=== PATIENT | female | born 1965 | race Caucasian/White ===

== ENCOUNTER 2016-08-05 18:00 | Observation (INO) | payer OTHER ==
[2016-08-05 18:10] VITALS: BMI 29.3
[2016-08-05 18:23] LABS: BASOPHIL 1.1 % (0-2.0); EOSINOPHIL 2.8 % (0-4.5); MCH 30.7 pg (25.7-33.7); MCHC 34.6 g/dl (32.0-36.0); MEAN CELL VOLUME 88.7 fl (80-96); MEAN PLT VOLUME 8.3 fl (7.5-11.1); NEUTROPHILS 61.4 % (42.8-82.8); PLATELET COUNT 246 K/MM3 (134-434); RDW 12.5 % (11.6-15.6); WHITE BLOOD COUNT 7.4 K/mm3 (4.0-10.0)
[2016-08-05] MEDS ORDERED: ASPIRIN 81 MG CHEWABLE TABLETS PO ONE (18:32)
--- NOTE | 2016-08-05 18:32 | PDOC ---
[id number] No Limitations - History of Present Illness Initial Comments: 08/05/16 18:36 The patient is a 50 year old female, with a significant past medical history of thyroid cancer status post resection (2009), status post cholecystectomy, and status post tubal ligation, who presents to the emergency department with chest pain for the past 3 days. She describes her chest pain as sharp heaviness, ranging from mild to moderate, with radiation to her jaw and bilateral arms but worse on her left arm. She denies any modifying factors. She notes that she has been taking aspirin for the past 3 days without any relief symptoms. She notes that she has been having pain in her legs bilaterally. The patient denies shortness of breath, headache and dizziness. Denies fever, chills, nausea, vomit, diarrhea and constipation. Allergies: Penicillin Past surgical history: Thyroid resection, cholecystectomy, tubal ligation Social history: Alcohol use. 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 <Tavo Cameron - Last Filed: 08/05/16 18:36> <Olivia Ring - Last Filed: 08/06/16 11:58> - General Chief Complaint: Chest Pain Stated Complaint: CHEST PAIN Time Seen by Provider: 08/05/16 18:31 Past History <Tavo Cameron - Last Filed: 08/05/16 18:36> - Past Medical History Cancer: Yes (thyroid) Thyroid Disease: Yes - Surgical History Cholecystectomy: Yes - Psycho/Social/Smoking Cessation Hx Anxiety: No Suicidal Ideation: No Smoking Status: No Smoking History: Never smoked Number of Cigarettes Smoked Daily: 0 Information on smoking cessation initiated: No Hx Alcohol Use: No Drug/Substance Use Hx: Yes Substance Use Type: Alcohol <Olivia Ring - Last Filed: 08/06/16 11:58> - Past Medical History Allergies/Adverse Reactions: Allergies Allergy/AdvReac Type Severity Reaction Status Date / Time Penicillins Allergy Intermediate Swelling Verified 08/05/16 18:04 Home Medications: Ambulatory Orders Levothyroxine [Synthroid -] 125 mcg PO DAILY #0 tablet 03/04/12 Review of Systems - Review of Systems Able to Perform ROS?: Yes Comments:: 08/05/16 18:37 GENERAL/CONSTITUTIONAL: No fever or chills. No weakness. HEAD, EYES, EARS, NOSE AND THROAT: No change in vision. No ear pain or discharge. No sore throat. CARDIOVASCULAR: +Chest pain. No shortness of breath RESPIRATORY: No cough, wheezing, or hemoptysis. GASTROINTESTINAL: No nausea, vomiting, diarrhea or constipation. GENITOURINARY: No dysuria, frequency, or change in urination. MUSCULOSKELETAL: No joint or muscle swelling or pain. No neck or back pain. EXTREMITIES: +Bilateral lower extremity pain. SKIN: No rash NEUROLOGIC: No headache, vertigo, loss of consciousness, or change in strength/ sensation. ENDOCRINE: No increased thirst. No abnormal weight change HEMATOLOGIC/LYMPHATIC: No anemia, easy bleeding, or history of blood clots. ALLERGIC/IMMUNOLOGIC: No hives or skin allergy. <Tavo Cameron - Last Filed: 08/05/16 18:36> *Physical Exam - Vital Signs Last Vital Signs Temp Pulse Resp BP Pulse Ox 98.9 F 88 18 131/82 97 08/05/16 18:06 08/05/16 18:06 08/05/16 18:06 08/05/16 18:06 08/05/16 18:06 - Physical Exam Comments: 08/05/16 18:37 GENERAL: Awake, alert, and fully oriented, in no acute distress HEAD: No signs of trauma, normocephalic, atraumatic EYES: PERRLA, EOMI, sclera anicteric, conjunctiva clear ENT: Auricles normal inspection, hearing grossly normal, nares patent, oropharynx clear without exudates. Moist mucosa NECK: Normal ROM, supple, no lymphadenopathy, JVD, or masses LUNGS: No distress, speaks full sentences, clear to auscultation bilaterally HEART: Regular rate and rhythm, normal S1 and S2, no murmurs, rubs or gallops, peripheral pulses normal and equal bilaterally. ABDOMEN: Soft, nontender, normoactive bowel sounds. No guarding, no rebound. No masses EXTREMITIES: +Calf tenderness bilaterally, right worse than left. Normal range of motion, no edema. No clubbing or cyanosis. NEUROLOGICAL: Cranial nerves II through XII grossly intact. Normal speech, normal gait, no focal sensorimotor deficits SKIN: Warm, Dry, normal turgor, no rashes or lesions noted. <Tavo Cameron - Last Filed: 08/05/16 18:36> - Vital Signs Last Vital Signs Temp Pulse Resp BP Pulse Ox 98.9 F 88 18 131/82 97 08/05/16 18:06 08/05/16 18:06 08/05/16 18:06 08/05/16 18:06 08/05/16 18:06 <Olivia Ring - Last Filed: 08/06/16 11:58> Heart Score/ECG Review - History History: Highly suspicious - Electrocardiogram EKG: Normal - Age Age: 45-65 - Risk Factors Risk Factors Heart Score: No Hx Hypercholesterolemia, No Hx Hypertension, No Hx Diabetes, No Smoking History Based on the list above the patient has:: No risk factors known - Troponin Troponin: </= normal limit - Score Heart Score - Total: 3 - ECG Impressions Comment:: EKG read 18:19- NSR 80 bpm, no acute ST/T changes <Olivia Ring - Last Filed: 08/06/16 11:58> ED Treatment Course - LABORATORY CBC & Chemistry Diagram: 08/05/16 18:15 08/05/16 18:15 - ADDITIONAL ORDERS Additional order review: Laboratory Results 08/05/16 18:15 Serum , Qual Negative 08/05/16 18:15 RBC 4.32 MCV 88.7 MCHC 34.6 RDW 12.5 MPV 8.3 Neutrophils % 61.4 D Lymphocytes % 26.4 D Monocytes % 8.3 Eosinophils % 2.8 Basophils % 1.1 <Tavo Cameron - Last Filed: 08/05/16 18:36> - LABORATORY CBC & Chemistry Diagram: 08/06/16 07:22 08/06/16 07:22 - ADDITIONAL ORDERS Additional order review: 08/05/16 18:15 RBC 4.32 MCV 88.7 MCHC 34.6 RDW 12.5 MPV 8.3 Neutrophils % 61.4 D Lymphocytes % 26.4 D Monocytes % 8.3 Eosinophils % 2.8 Basophils % 1.1 <Olivia Ring - Last Filed: 08/06/16 11:58> Medical Decision Making - Medical Decision Making 08/05/16 19:[address] Wagner. P/w chest pressure radiating to her arms associated with nausea for the past 3 days. currently denies nausea, but still having pressure in chest and arms. She has been taking aspirin for past few days, but not today. No SOB. Noted to have calf tenderness B/L on exam. She has been in remission from thyroid CA for past 2 years (used to see Dr. Silva for the cardiac effects, has not seen him recently). Will obtain DVT study, CTA, labs. If everything is negative, likely obs for chest pain. <Olivia Ring - Last Filed: 08/06/16 11:58> *DC/Admit/Observation/Transfer - Attestations Scribe Attestion: 08/05/16 18:37 Documentation prepared by Tavo Cameron, acting as medical records specialist for Olivia Ring MD <Tavo Cameron - Last Filed: 08/05/16 18:36> <Olivia Ring - Last Filed: 08/06/16 11:58> Diagnosis at time of Disposition: Chest pain - Discharge Dispostion Condition at time of disposition: Stable
[2016-08-05] MEDS ORDERED: ASPIRIN 81 MG CHEWABLE TABLETS ONE (18:37)
[2016-08-05 18:38] LABS: CPK(DFH) 127 IU/L (26-140)
[2016-08-05 18:39] LABS: ALBUMIN 4.1 g/dl (3.5-5.0); ALK PHOS 76 U/L (32-92); ANION GAP 6 (8-16); BILIRUBIN,TOTAL 0.3 mg/dl (0.2-1.0); CO2 27 mmol/L (22-28); CREATININE 0.8 mg/dl (0.6-1.3); GLUCOSE,RANDOM 95 mg/dl (74-106); SGOT/AST 19 U/L (10-42); SGPT/ALT 16 U/L (10-40); TOT PROT 7.4 g/dl (6.4-8.3)
[2016-08-05] MEDS ORDERED: CALCIUM GLUCONATE 10% - 1,000 MG/10 ML VIAL IVPB ONE (18:44)
[2016-08-05] MEDS ORDERED: CALCIUM GLUCONATE 10% - 1,000 MG/10 ML VIAL ONE (19:02)
[2016-08-05 19:20] LABS: TROPONIN I (DFP) < 0.03 ng/ml (0.03-0.50)
--- NOTE | 2016-08-05 20:11 | PDOC ---
*Physical Exam - Vital Signs Last Vital Signs Temp Pulse Resp BP Pulse Ox 98.9 F 88 18 131/82 97 08/05/16 18:06 08/05/16 18:06 08/05/16 18:06 08/05/16 18:06 08/05/16 18:06 ED Treatment Course - LABORATORY CBC & Chemistry Diagram: 08/05/16 18:15 08/05/16 18:15 - ADDITIONAL ORDERS Additional order review: Laboratory Results 08/05/16 08/05/16 08/05/16 18:15 18:15 18:15 Sodium 135 L Potassium 3.7 Chloride 102 Carbon Dioxide 27 Anion Gap 6 L BUN 16 D Creatinine 0.8 D Creat Clearance w eGFR > 60 Random Glucose 95 Calcium 8.0 L Total Bilirubin 0.3 D AST 19 ALT 16 Alkaline Phosphatase 76 Creatine Kinase 127 Troponin I < 0.03 L Total Protein 7.4 Albumin 4.1 Serum , Qual Negative 08/05/16 18:15 RBC 4.32 MCV 88.7 MCHC 34.6 RDW 12.5 MPV 8.3 Neutrophils % 61.4 D Lymphocytes % 26.4 D Monocytes % 8.3 Eosinophils % 2.8 Basophils % 1.1 - Medications Given in the ED: ED Medications Discontinued Medications Generic Name Dose Route Start Last Admin Trade Name Freq PRN Reason Stop Dose Admin Aspirin 324 mg 08/05/16 18:32 08/05/16 18:44 Asa - PO 08/05/16 18:33 324 mg ONCE ONE Administration Calcium Gluconate 1,000 mg 08/05/16 18:44 08/05/16 19:38 Calcium Gluconate 10% - IVPB 08/05/16 18:45 1,000 mg ONCE ONE Administration *DC/Admit/Observation/Transfer Diagnosis at time of Disposition: Chest pain Qualifiers: Chest pain type: unspecified Qualified Code(s): R07.9 - Chest pain, unspecified - Discharge Dispostion Condition at time of disposition: Stable Admit: Yes
--- NOTE | 2016-08-05 23:15 | HP ---
CHIEF COMPLAINT: Chest Pressure PCP: Employment Recruiter: Dr. Richard Silva HISTORY OF PRESENT ILLNESS: This is a 50 y/o female with a past medical history of Thyroid Ca s/p Thyroidectomy. Who presents to the emergency department with midsternal chest pressure radiating to her jaw, with bilateral arm heaviness L>R x several days. Patient reports taking a Baby Asa daily with little relief. Patient reports constant pressure increased at rest, with palpations. Patient reports a similar episode when diagnosed with Thyroid Ca 7 years ago. Patient reports having a Thallium Stress, Halter, Doppler- negative 2-4 yrs ago. Patient denies fever, chills, cough, dizziness, blurred vision, headache, N/V/D, constipation, dysuria. 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 Family History: Mother: HTN, Hyperthyroid Grandmother: MVP, Cervical Ca Allergies Penicillins Allergy (Intermediate, Verified 08/05/16 18:04) Swelling HOME MEDICATIONS: Home Medications Medication Instructions Recorded Levothyroxine [Synthroid -] 125 mcg PO DAILY #0 tablet 03/04/12 REVIEW OF SYSTEMS CONSTITUTIONAL: fatigued Absent: fever, chills, diaphoresis, generalized weakness, malaise, loss of appetite, weight change HEENT: jaw pain Absent: rhinorrhea, nasal congestion, throat pain, throat swelling, difficulty swallowing, mouth swelling, ear pain, eye pain, visual changes CARDIOVASCULAR: chest pain, palpitations Absent: syncope, irregular heart rate, lightheadedness, peripheral edema RESPIRATORY: Absent: cough, shortness of breath, dyspnea with exertion, orthopnea, wheezing, stridor, hemoptysis GASTROINTESTINAL: abdominal pain Absent: abdominal distension, nausea, vomiting, diarrhea, constipation, melena, hematochezia GENITOURINARY: Absent: dysuria, frequency, urgency, hesitancy, hematuria, flank pain, genital pain MUSCULOSKELETAL: arm heaviness Absent: myalgia, arthralgia, joint swelling, back pain, neck pain SKIN: Absent: rash, itching, pallor HEMATOLOGIC/IMMUNOLOGIC: Absent: easy bleeding, easy bruising, lymphadenopathy, frequent infections ENDOCRINE: Absent: unexplained weight gain, unexplained weight loss, heat intolerance, cold intolerance NEUROLOGIC: Absent: headache, focal weakness or paresthesias, dizziness, unsteady gait, seizure, mental status changes, bladder or bowel incontinence PSYCHIATRIC: Absent: anxiety, depression, suicidal or homicidal ideation, hallucinations. PHYSICAL EXAMINATION GENERAL: Awake, alert, and fully oriented, in no acute distress. HEAD: Normal with no signs of trauma. EYES: Pupils equal, round and reactive to light, extraocular movements intact, sclera anicteric, conjunctiva clear. No lid lag. EARS, NOSE, THROAT: Ears normal, nares patent, oropharynx clear without exudates. Moist mucous membranes. NECK: Normal range of motion, supple without lymphadenopathy, JVD, or masses. LUNGS: Breath sounds equal, clear to auscultation bilaterally. No wheezes, and no crackles. No accessory muscle use. HEART: Regular rate and rhythm, normal S1 and S2 without murmur, rub or gallop. CP non-reproducible on palpation. ABDOMEN: Soft, nontender, not distended, normoactive bowel sounds, no guarding, no rebound, no masses. No hepatomegaly or splenomegaly. MUSCULOSKELETAL: Normal range of motion at all joints. No bony deformities or tenderness. No CVA tenderness. UPPER EXTREMITIES: 2+ pulses, warm, well-perfused. No cyanosis. No clubbing. No peripheral edema. LOWER EXTREMITIES: 2+ pulses, warm, well-perfused. No calf tenderness. No peripheral edema. NEUROLOGICAL: Cranial nerves II-XII intact. Normal speech. Normal gait. PSYCHIATRIC: Cooperative. Good eye contact. Appropriate mood and affect. SKIN: Warm, dry, normal turgor, no rashes or lesions noted, normal capillary refill. Laboratory Results - last 24 hr 08/05/16 08/05/16 08/05/16 18:15 18:15 18:15 WBC 7.4 D RBC 4.32 Hgb 13.3 Hct 38.3 MCV 88.7 MCHC 34.6 RDW 12.5 Plt Count 246 MPV 8.3 Neutrophils % 61.4 D Lymphocytes % 26.4 D Monocytes % 8.3 Eosinophils % 2.8 Basophils % 1.1 Sodium 135 L Potassium 3.7 Chloride 102 Carbon Dioxide 27 Anion Gap 6 L BUN 16 D Creatinine 0.8 D Creat Clearance w eGFR > 60 Random Glucose 95 Calcium 8.0 L Total Bilirubin 0.3 D AST 19 ALT 16 Alkaline Phosphatase 76 Creatine Kinase Troponin I Total Protein 7.4 Albumin 4.1 Serum , Qual Negative 08/05/16 08/06/16 08/06/16 18:15 00:00 00:00 WBC RBC Hgb Hct MCV MCHC RDW Plt Count MPV Neutrophils % Lymphocytes % Monocytes % Eosinophils % Basophils % Sodium Potassium Chloride Carbon Dioxide Anion Gap BUN Creatinine Creat Clearance w eGFR Random Glucose Calcium Total Bilirubin AST ALT Alkaline Phosphatase Creatine Kinase 127 Cancelled 114 Troponin I < 0.03 L Cancelled < 0.02 Total Protein Albumin Serum , Qual ASSESSMENT/PLAN: This is a 50 y/o female with a PMHx of: Thyroid Ca( s/p Thyroidectomy 2009), MVP. Who presents to the ED with chest pressure x several days. Placed on Tele Observation for Chest Pain r/o ACS further evaluation of their emergent condition. Problems: 1. Chest Pain r/o ACS vs MT 2. Hypocalcemia 3. Hypothyroidism Plan: FEN - PO fluids - Repleted Ca - Low Na Diet Code Status: Full Code Dispo: Observation for continued medical care Problem List - Problem (1) Chest pain Assessment/Plan: - r/o ACS - [place] tele monitoring - HEART Score 3 - Cardiac Enzymes neg x1 - ARUNA Score 1 - Serial Enzymes x2 - EKG: NSR with left axis deviation, incomplete RBB - Continue Asa - Will start BB low dose, with BP parameters - Consider Echo - f/u with Cardiology in outpatient Code(s): R07.9 - CHEST PAIN, UNSPECIFIED Qualifiers: Chest pain type: unspecified Qualified Code(s): R07.9 - Chest pain, unspecified (2) Hypothyroidism Assessment/Plan: - Continue Levothyroxine - TSH - Free T3 Code(s): E03.9 - HYPOTHYROIDISM, UNSPECIFIED (3) DVT prophylaxis Assessment/Plan: - OOB - SCDs - Consider AC if LOS > 48 hrs Code(s): [id number] - Visit type - Emergency Visit Emergency Visit: Yes ED Registration Date: 08/05/16 Care time: The patient presented to the Emergency Department on the above date and was hospitalized for further evaluation of their emergent condition. - New Patient This patient is new to me today: Yes Date on this admission: 08/05/16 - Critical Care Critical Care patient: No
[2016-08-06 01:26] LABS: TROPONIN I < 0.02 ng/ml (0.00-0.05)
[2016-08-06] MEDS ORDERED: LEVOTHYROXINE NA 125 MCG TABLET (FP) PO SCH (07:00)
[2016-08-06 09:06] LABS: BASOPHIL 0.7 % (0-2.0); EOSINOPHIL 3.8 % (0-4.5); MCH 30.8 pg (25.7-33.7); MCHC 34.4 g/dl (32.0-36.0); MEAN CELL VOLUME 89.5 fl (80-96); MEAN PLT VOLUME 8.8 fl (7.5-11.1); NEUTROPHILS 62.1 % (42.8-82.8); PLATELET COUNT 284 K/MM3 (134-434); RDW 12.6 % (11.6-15.6); WHITE BLOOD COUNT 6.2 K/mm3 (4.0-10.0)
[2016-08-06 09:15] LABS: CALCIUM 8.8 mg/dl (8.4-10.2); CREATININE 0.6 mg/dl (0.6-1.3)
[2016-08-06 09:28] LABS: TROPONIN I (DFP) 0.03 ng/ml (0.03-0.50)
[2016-08-06] MEDS: METOPROLOL TARTRATE 25 MG TABLET (FP) PO SCH (09:44)
[2016-08-06] MEDS: ASPIRIN 81 MG CHEWABLE TABLETS PO SCH (09:44)
--- NOTE | 2016-08-06 11:09 | PN ---
Physical Exam: SUBJECTIVE: Patient seen and examined. Still feels chest pressure although improved. Denies SOB, palpitations, orthopnea, lower extremity edema. Environmental Intern: Dr. Aguilar - last seen in July 2016; follows regularly PCP: Dr. Preet Gomez Cardiololgy: Dr. Love - last seen 3 years ago OBJECTIVE: Vital Signs Period Temp Pulse Resp BP Sys/Hurtado Pulse Ox Last 24 Hr 98.7 F-98.7 F 70-75 17-17 122-123/68-77 GENERAL: The patient is awake, alert, and fully oriented, in no acute distress. HEAD: Normal with no signs of trauma. EYES: PERRL, extraocular movements intact, sclera anicteric, conjunctiva clear. No ptosis. LUNGS: Breath sounds equal, clear to auscultation bilaterally, no wheezes, no crackles, no accessory muscle use. HEART: Regular rate and rhythm, S1, S2 without murmur, rub or gallop. ABDOMEN: Soft, nontender, nondistended, normoactive bowel sounds, no guarding, no rebound, no hepatosplenomegaly, no masses. EXTREMITIES: 2+ pulses, warm, well-perfused, no edema. NEUROLOGICAL: Cranial nerves II through XII grossly intact. Normal speech, gait not observed. PSYCH: Normal mood, normal affect. SKIN: Warm, dry, normal turgor, no rashes or lesions noted Laboratory Results - last 24 hr 08/06/16 08/06/16 08/06/16 00:00 00:00 07:22 WBC RBC Hgb Hct MCV MCHC RDW Plt Count MPV Neutrophils % Lymphocytes % Monocytes % Eosinophils % Basophils % Sodium 138 Potassium 3.6 Chloride 101 Carbon Dioxide 29 H Anion Gap 8 BUN 14 Creatinine 0.6 D Random Glucose 100 Calcium 8.8 Creatine Kinase Cancelled 114 Troponin I Cancelled < 0.02 08/06/16 08/06/16 07:22 07:22 WBC 6.2 RBC 4.42 Hgb 13.6 Hct 39.6 MCV 89.5 MCHC 34.4 RDW 12.6 Plt Count 284 MPV 8.8 Neutrophils % 62.1 Lymphocytes % 26.2 Monocytes % 7.2 Eosinophils % 3.8 Basophils % 0.7 Sodium 48 Potassium Chloride Carbon Dioxide Anion Gap BUN Creatinine Random Glucose Calcium Creatine Kinase 105 Troponin I 0.03 Active Medications Generic Name Dose Route Start Last Admin Trade Name Eloisa PRN Reason Stop Dose Admin Aspirin 81 mg 08/06/16 10:00 08/06/16 09:44 Asa - PO 81 mg DAILY AKASH Administration Levothyroxine Sodium 125 mcg 08/06/16 07:00 08/06/16 06:35 Synthroid - PO 125 mcg DAILY@0700 AKASH Administration Metoprolol Tartrate 25 mg 08/06/16 10:00 08/06/16 09:44 Lopressor - PO 25 mg DAILY AKASH Administration 08/05/16 CTA: negative for PE or acute pathology ASSESSMENT/PLAN: 50 year-old woman with a PMH of thyroid cancer s/p resection (2009), placed on observation for chest pain. Chest pain --troponins neg x 3 --CT chest unremarkable --echo on Monday; stress ordered for Monday in event cardiology wants, NPO after midnight Monday --continue metoprolol, ASA --cardiology consult requested Thyroid cancer s/p resection --TSH, free T3 pending --continue levothyroxine F/E/N Fluids: PO intake adequate Electrolytes: replete as indicated Nutrition: low sodium diet DVT prophylaxis: low risk, fully ambulatory, oob Dispo: continues to require observation. Full Code Visit type - Emergency Visit Emergency Visit: Yes ED Registration Date: 08/05/16 Care time: The patient presented to the Emergency Department on the above date and was hospitalized for further evaluation of their emergent condition. - New Patient This patient is new to me today: No - Critical Care Critical Care patient: No
[2016-08-06 14:56] LABS: THYROID STIMULATING HORMONE 3.49 uIU/ml (0.358-3.74)
[2016-08-07] MEDS ORDERED: LEVOTHYROXINE NA 125 MCG TABLET (FP) PO SCH (07:00)
[2016-08-07] MEDS: METOPROLOL TARTRATE 25 MG TABLET (FP) PO SCH (09:52)
[2016-08-07] MEDS: ASPIRIN 81 MG CHEWABLE TABLETS PO SCH (09:52)
--- NOTE | 2016-08-07 10:02 | PN ---
Physical Exam: SUBJECTIVE: Patient seen and examined OBJECTIVE: Vital Signs Period Temp Pulse Resp BP Sys/Hurtado Pulse Ox Last 24 Hr 98.1 F-98.5 F 69-72 18-18 102-117/65-67 97-98 GENERAL: The patient is awake, alert, and fully oriented, in no acute distress. HEAD: Normal with no signs of trauma. EYES: PERRL, extraocular movements intact, sclera anicteric, conjunctiva clear. No ptosis. LUNGS: Breath sounds equal, clear to auscultation bilaterally, no wheezes, no crackles, no accessory muscle use. HEART: Regular rate and rhythm, S1, S2 without murmur, rub or gallop. ABDOMEN: Soft, nontender, nondistended, normoactive bowel sounds, no guarding, no rebound, no hepatosplenomegaly, no masses. EXTREMITIES: 2+ pulses, warm, well-perfused, no edema. NEUROLOGICAL: Cranial nerves II through XII grossly intact. Normal speech, gait not observed. PSYCH: Normal mood, normal affect. SKIN: Warm, dry, normal turgor, no rashes or lesions noted Laboratory Results - last 24 hr 08/06/16 08/06/16 07:22 07:22 TSH 3.49 Free T3 2.3 Active Medications Generic Name Dose Route Start Last Admin Trade Name Eloisa PRN Reason Stop Dose Admin Aspirin 81 mg 08/06/16 10:00 08/07/16 09:52 Asa - PO 81 mg DAILY AKASH Administration Levothyroxine Sodium 125 mcg 08/07/16 07:00 08/07/16 06:30 Synthroid - PO 125 mcg DAILY@0700 AKASH Administration Metoprolol Tartrate 25 mg 08/06/16 10:00 08/07/16 09:52 Lopressor - PO 25 mg DAILY AKASH Administration ASSESSMENT/PLAN: 08/05/16 CTA: negative for PE or acute pathology ASSESSMENT/PLAN: 50 year-old woman with a PMH of thyroid cancer s/p resection (2009), placed on observation for chest pain. Chest pain --troponins neg x 3 --CT chest unremarkable --echo and possible stress on Monday --continue metoprolol, ASA --cardiology consult requested Thyroid cancer s/p resection --TSH, free T3 pending --continue levothyroxine F/E/N Fluids: PO intake adequate Electrolytes: replete as indicated Nutrition: low sodium diet DVT prophylaxis: low risk, fully ambulatory, oob Dispo: continues to require observation. Full Code Visit type - Emergency Visit Emergency Visit: Yes ED Registration Date: 08/05/16 Care time: The patient presented to the Emergency Department on the above date and was hospitalized for further evaluation of their emergent condition. - New Patient This patient is new to me today: No - Critical Care Critical Care patient: No
[2016-08-07 15:06] VITALS: BP 109/69; PULSE 68; TEMP 98
--- NOTE | 2016-08-07 15:20 | CON.CARD ---
Consult Consult Specialty:: Cardiology Referred by:: Hospitalist Medicine Reason for Consultation:: Chest pain - History of Present Illness Chief Complaint: Chest pain History of Present Illness: This is a 50 y/o female with a past medical history of Thyroid Ca s/p Thyroidectomy and consequent hypothyroidism, mitral valve prolapse syndrome presented to the emergency department with non-exertional midsternal chest pressure radiating to her jaw, with bilateral arm heaviness L>R for several days. Patient reports taking a Baby Asa daily with little relief. Patient reports constant pressure increased at rest, with palpations, sxs worse supine than upright. Patient reports a similar episode when diagnosed with Thyroid Ca 7 years ago. Patient reports having a Thallium Stress, Holter, Doppler- negative 2-4 yrs ago. Patient denies dyspnea, palpitations, near or true syncope , orthopnea, PND or LE edema. Chest pain improved with Toprol XL. ER course was notable for: (1) CT Chest - negative PE (2) Cardiac Enzyme neg x1 (3) Doppler severino legs- neg DVT - History Source History Provided By: Patient Limitations to Obtaining History: No Limitations - Past Medical History ...LMP: 02/29/12 - Alcohol/Substance Use Hx Alcohol Use: No - Smoking History Smoking history: Never smoked Aproximately how many cigarettes per day: 0 Home Medications - Allergies Allergies/Adverse Reactions: Allergies Allergy/AdvReac Type Severity Reaction Status Date / Time Penicillins Allergy Intermediate Swelling Verified 08/05/16 18:04 - Home Medications Home Medications: Ambulatory Orders Levothyroxine [Synthroid -] 125 mcg PO DAILY #0 tablet 03/04/12 Review of Systems - Review of Systems Cardiovascular: reports: Chest Pain Vital Signs: Vital Signs Temperature 98.0 F 08/07/16 15:05 Pulse Rate 68 08/07/16 15:05 Respiratory Rate 18 08/07/16 15:05 Blood Pressure 109/69 08/07/16 15:05 O2 Sat by Pulse Oximetry (%) 98 08/07/16 15:05 Constitutional: Yes: No Distress, Calm Neck: Yes: Supple Respiratory: Yes: Regular, CTA Bilaterally Gastrointestinal: Yes: Normal Bowel Sounds Cardiovascular: Yes: Regular Rate and Rhythm JVD: No Carotid Bruit: No Heart Sounds: Yes: S1, S2 Edema: No - Other Data Labs, Other Data: CBC, BMP 08/06/16 07:22 08/06/16 07:22 NSR @ 74 LAD Tele: NSR without events Ejection Fraction %: LVEF > or = 40 % Problem List - Problems (1) Chest pain Code(s): R07.9 - CHEST PAIN, UNSPECIFIED Qualifiers: Chest pain type: other chest pain Qualified Code(s): R07.89 - Other chest pain; R07.8 - Other chest pain (2) Hypothyroidism Code(s): E03.9 - HYPOTHYROIDISM, UNSPECIFIED Qualifiers: Hypothyroidism type: acquired Qualified Code(s): E03.9 - Hypothyroidism, unspecified (3) Mitral valve prolapse syndrome Code(s): I34.1 - NONRHEUMATIC MITRAL (VALVE) PROLAPSE Assessment/Plan 08/05/16 CTA: negative for PE or acute pathology 1. Chest pain syndrome with atypical features suspect mitral valve prolapse syndrome resolving with Toprol 2. Hypothyroidism with thyroid cancer s/p resection P:1. Ruled out for [place], ruled out for DVT/PE 2. Continue Toprol XL 25 qd 3. ETT and echocardiogram may be performed as outpatient 4. Thank you for consultative opportunity
--- NOTE | 2016-08-08 20:37 | EKG ---
Test Reason : Blood Pressure : / mmHG Vent. Rate : 080 BPM Atrial Rate : 080 BPM P-R Int : 162 ms QRS Dur : 092 ms QT Int : 370 ms P-R-T Axes : 047 -33 029 degrees QTc Int : 426 ms NORMAL SINUS RHYTHM LEFT AXIS DEVIATION INCOMPLETE RIGHT BUNDLE BRANCH BLOCK WHEN COMPARED WITH ECG OF 07-AUG-2000 19:03, NO SIGNIFICANT CHANGE WAS FOUND Confirmed by MD OBI, TAHIR ([id number]) on 08/08/2016 8:37:24 PM Referred By: MD ALONZO Confirmed By:TAHIR CROCKER MD
--- NOTE | 2016-08-09 14:50 | EKG ---
Test Reason : Blood Pressure : / mmHG Vent. Rate : 074 BPM Atrial Rate : 074 BPM P-R Int : 178 ms QRS Dur : 086 ms QT Int : 386 ms P-R-T Axes : 036 -32 013 degrees QTc Int : 428 ms NORMAL SINUS RHYTHM LEFT AXIS DEVIATION ABNORMAL ECG WHEN COMPARED WITH ECG OF 05-AUG-2016 18:15, INCOMPLETE RIGHT BUNDLE BRANCH BLOCK IS NO LONGER PRESENT Confirmed by EMPERATRIZ PERSON, LAYTON ([id number]) on 08/09/2016 2:49:49 PM Referred By: DR RIDLEY Confirmed By:LAYTON AWAN MD
== END 2016-08-07 17:05 | disposition home or self-care (01) ==
LOC: FER 18:00 → FM/S 21:35
PROVIDERS: ADMIT Internal Medicine; ATTEND Nurse Practitioner Acute Care
DX: R07.89 Other chest pain (principal); Z85.850 Personal history of malignant neoplasm of thyroid; E03.9 Hypothyroidism, unspecified; I34.1 Nonrheumatic mitral (valve) prolapse
CPT/HCPCS: 36415; 71275-TC; 80048; 80053; 82550; 84443; 84481; 84484; 84703; 85025; 93005; 93970-TC; 99284-25; G0378